=== PATIENT | male | born 2000 | race Caucasian/White ===

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

== ENCOUNTER 2019-05-02 23:46 | Emergency (ER) | payer SELFPAY ==
[2019-05-03 01:07] LABS: ABS Basophils 0.1 10^3/ul (0-0.2); ABS Eosinophils 0.2 10^3/ul (0-0.6); ABS Lymphocytes 1.8 10^3/ul (1.0-4.8); ABS Monocytes 0.8 10^3/ul (0-0.8); ABS Neutrophils 5.2 10^3/ul (1.5-7.7); Eosinophil % 2.4 %; Hematocrit 43 % (42-52); Lymphocyte % 22.5 %; Mean Corpuscular HGB Conc 35 g/dL (31-36); Mean Corpuscular Hemoglobin 33 pg (27-31); Mean Corpuscular Volume 93 fL (80-94); Mean Platelet Volume 7.9 fL (7.4-10.4); Nucleated Red Blood Cells % 0.1; Platelet Count 234 10^3/uL (150-450); Red Blood Count 4.62 10^6 /uL (4.18-5.48); Red Cell Distribution Width 13 % (10-15)
[2019-05-03 01:24] LABS: ALT 20 U/L (7-52); Albumin 4.6 g/dL (3.2-5.2); Albumin/Globulin Ratio 1.8 (1-3); Alkaline Phosphatase 96 U/L (34-104); Blood Urea Nitrogen 11 mg/dL (6-24); C Reactive Protein < 1.00 mg/L (<8.01); CO2 Carbon Dioxide 30 mmol/L (22-32); Calcium 9.6 mg/dL (8.6-10.3); Chloride 104 mmol/L (101-111); EGFR African American 115.3 (>60); EGFR Non-African American 95.3 (>60); Globulin 2.5 g/dL (2-4); Glucose 133 mg/dL (70-100); Sodium 139 mmol/L (135-145); Total Protein 7.1 g/dL (6.4-8.9)
[2019-05-03] MEDS ORDERED: NS 0.9% 1000 ML** 2,000 ML IV ONE (01:30)
--- NOTE | 2019-05-03 01:35 | ED ---
Abdominal Pain/Male - HPI Summary HPI Summary: This pt is a 19 y/o male presenting to [facility] c/o abd pain since 05/02/19. Pt reports he has had abdominal "swelling" from his left side pushing to his right side since 2 days ago. Pt notes his abd pain began tonight around his umbilicus. Denies associated vomiting, diarrhea. His friend reports 1 week ago pt had back pain and was constipated for 3 days. He took milk of magnesia and his constipation resolved. Currently reports normal bowel movements. Denies decreased appetite. Pt rates his pain 4/10, however he notes his pain waxes and wanes. Pt denies having this same pain in the past. Denies any abd surgeries. He does not take medications on a daily basis. NKDA. Pt does use marijuana daily. Denies tobacco use. - History of Current Complaint Chief Complaint: EDAbdPain Stated Complaint: ABD PAIN PER PT Hx Obtained From: Patient Onset/Duration: Lasting Hours, Still Present Severity Currently: Moderate Pain Intensity: 4 Pain Scale Used: 0-10 Numeric Location: Diffuse Radiates: No Character: Sharp Aggravating Factor(s): Nothing Alleviating Factor(s): Nothing Associated Signs And Symptoms: Negative: Fever, Nausea, Vomiting, Diarrhea - Allergies/Home Medications Allergies/Adverse Reactions: Allergies Allergy/AdvReac Type Severity Reaction Status Date / Time No Known Allergies Allergy Verified 08/19/18 16:04 PMH/Surg Hx/FS Hx/Imm Hx Endocrine/Hematology History: Denies: Hx Blood Disorders Cardiovascular History: Denies: Hx Hypertension GI History: Denies: Hx Gastroesophageal Reflux Disease, Hx Ulcer Sensory History: Reports: Hx Glaucoma Opthamlomology History: Reports: Hx Glaucoma - Surgical History Surgery Procedure, Year, and Place: cyst removal from arm - Immunization History Immunizations Up to Date: Yes Infectious Disease History: No Infectious Disease History: Denies: Traveled Outside the [place] in Last 30 Days - Family History Known Family History: Positive: Hypertension Family History: mom reports + abdominal issues on father's side - Social History Alcohol Use: None Substance Use Type: Reports: Marijuana Substance Use Comment - Amount & Last Used: daily Smoking Status (MU): Never Smoked Tobacco Review of Systems Negative: Fever, Other - decreased appetite Gastrointestinal: Other - POSITIVE: abdominal "swelling" Positive: Abdominal Pain. Negative: Vomiting, Diarrhea, Nausea, Other - constipation All Other Systems Reviewed And Are Negative: Yes Physical Exam - Summary Physical Exam Summary: Appearance: Well-appearing, Well-nourished, lying in bed comfortably Skin: Warm, dry, no obvious rash Eyes: sclera anicteric, no conjunctival pallor ENT: mucous membranes moist, pharynx appears normal Neck: Supple, nontender Respiratory: Clear to auscultation, no signs of respiratory distress Cardiovascular: Normal S1, S2. No murmurs. Normal distal pulses in tibial and radial bilaterally. Abdomen: Soft, minimal lower abdominal tenderness with no peritoneal signs, normal active bowel sounds present Musculoskeletal: Normal, Strength/ROM Intact Neurological: A&Ox3, awake and alert, mentation is normal, speech is fluent and appropriate Psychiatric: affect is normal, does not appear anxious or depressed Triage Information Reviewed: Yes Vital Signs On Initial Exam: Initial Vitals Temp Pulse Resp BP Pulse Ox 97.9 F 111 18 166/102 98 05/02/19 23:48 05/02/19 23:48 05/02/19 23:48 05/02/19 23:48 05/02/19 23:48 Vital Signs Reviewed: Yes Diagnostics - Vital Signs Vital Signs Temp Pulse Resp BP Pulse Ox 05/02/19 23:48 97.9 F 111 18 166/102 98 - Laboratory Lab Results: Lab Results 05/03/19 05/03/19 Range/Units 01:01 01:01 WBC 8.0 (3.5-10.8) 10^3/uL RBC 4.62 (4.18-5.48) 10^6 /uL Hgb 15.0 (14.0-18.0) g/dL Hct 43 (42-52) % MCV 93 (80-94) fL MCH 33 H (27-31) pg MCHC 35 (31-36) g/dL RDW 13 (10-15) % Plt Count 234 (150-450) 10^3/uL MPV 7.9 (7.4-10.4) fL Neut % (Auto) 64.7 % Lymph % (Auto) 22.5 % [place] % (Auto) 9.4 % Eos % (Auto) 2.4 % Baso % (Auto) 1.0 % Absolute Neuts (auto) 5.2 (1.5-7.7) 10^3/ul Absolute Lymphs (auto) 1.8 (1.0-4.8) 10^3/ul Absolute Monos (auto) 0.8 (0-0.8) 10^3/ul Absolute Eos (auto) 0.2 (0-0.6) 10^3/ul Absolute Basos (auto) 0.1 (0-0.2) 10^3/ul Absolute Nucleated RBC 0.0 10^3/ul Nucleated RBC % 0.1 Sodium 139 (135-145) mmol/L Potassium Pending Chloride 104 (101-111) mmol/L Carbon Dioxide 30 (22-32) mmol/L Anion Gap Pending BUN 11 (6-24) mg/dL Creatinine 1.00 (0.67-1.17) mg/dL Est GFR ( Amer) 115.3 (>60) Est GFR (Non-Af Amer) 95.3 (>60) BUN/Creatinine Ratio 11.0 (8-20) Glucose 133 H (70-100) mg/dL Calcium 9.6 (8.6-10.3) mg/dL Total Bilirubin 0.70 (0.2-1.0) mg/dL AST Pending ALT 20 (7-52) U/L Alkaline Phosphatase 96 (34-104) U/L C-Reactive Protein < 1.00 (<8.01) mg/L Total Protein 7.1 (6.4-8.9) g/dL Albumin 4.6 (3.2-5.2) g/dL Globulin 2.5 (2-4) g/dL Albumin/Globulin Ratio 1.8 (1-3) Lipase 19 (11.0-82.0) U/L Result Diagrams: 05/03/19 01:01 05/03/19 01:01 Lab Statement: Any lab studies that have been ordered have been reviewed, and results considered in the medical decision making process. - CT Abdomen/Pelvis CT CT Interpretation Completed By: Radiologist Summary of CT Findings: IMPRESSION: 1. Question of minimal pancreatitis. 2. Otherwise negative CT abdomen/pelvis. A normal appendix is seen. No renal or ureteral calculi are evident and there is no evidence of obstructive uropathy. Dr. Edwards has reviewed this report. Re-Evaluation - Re-Evaluation First Eval Re-Evaluation Time: 06:39 Comment: Reviewed CT results with the pt. He will be discharged home. Abdominal Pain Male Course/Dx - Course Assessment/Plan: Pt is a 19 y/o male presenting to [facility] c/o abd pain since 05/02. He has had abdominal "swelling" from his left side pushing onto his right side since 2 days ago. Pt notes his abd pain began tonight around his umbilicus. Denies associated vomiting, diarrhea. His friend reports 1 week ago pt had back pain and was constipated for 3 days. He took milk of magnesia and his constipation resolved. Test results are unremarkable. UA is negative. CT of abdomen/pelvis shows 1. Question of minimal pancreatitis. 2. Otherwise negative CT abdomen/pelvis. A normal appendix is seen. No renal or ureteral calculi are evident and there is no evidence of obstructive uropathy. Results were reviewed with the patient. Pt will be discharged home with follow up from his PCP in 3 days. - Diagnoses Provider Diagnoses: Acute abdominal pain Discharge - Sign-Out/Discharge Documenting (check all that apply): Patient Departure - Discharge home Patient Received Moderate/Deep Sedation with Procedure: No - Discharge Plan Condition: Good Disposition: HOME Patient Education Materials: Acute Abdominal Pain (ED) Referrals: Jeffrey Hidalgo MD [Primary Care Provider] - 3 Days (if not improving) - Billing Disposition and Condition Condition: GOOD Disposition: Home - Attestation Statements Document Initiated by Fernie: Yes Documenting Lelaibe: Milka Rushing Provider For Whom Fernie is Documenting (Include Credential): MD Lela Boschibgomez Attestation: Milka Barraza, scribed for Mauro Edwards MD on 05/03/19 at 0711. Scribe Documentation Reviewed: Yes Provider Attestation: The documentation as recorded by the Milka holland accurately reflects the service I personally performed and the decisions made by me, Mauro Edwards MD Status of Scribgomez Document: Viewed
[2019-05-03 01:54] LABS: AST 24 U/L (13-39); Anion Gap 5 mmol/L (2-11); Potassium 3.9 mmol/L (3.5-5.0)
[2019-05-03 02:36] LABS: Urine Appearance Cloudy; Urine Bilirubin Negative (Negative); Urine Blood Negative (Negative); Urine Color Yellow; Urine Glucose Negative (Negative); Urine Ketones Negative (Negative); Urine Nitrite Negative (Negative); Urine Protein Negative (Negative); Urine Urobilinogen Negative (Negative)
[2019-05-03] MEDS ORDERED: Iohexol 300* (CONTRAST) 10 ML SDV IV ONE (04:02)
[2019-05-03 06:24] VITALS: BP 112/69
== END 2019-05-03 06:48 | disposition home or self-care (01) ==
LOC: ED 23:46
DX: R10.9 Unspecified abdominal pain (principal)
CPT/HCPCS: 36415; 74177; 80053; 81003; 83690; 85025; 86140; 96360; 96361; 99283; Q9967